=== PATIENT | male | born 1990 | race Caucasian/White ===

== ENCOUNTER 2018-10-06 21:43 | Emergency (ER) | payer OTHER, SELFPAY ==
[2018-10-06 21:47] VITALS: BP 152/90; PULSE 61; RESP 16; TEMP 37; O2SAT 99
--- NOTE | 2018-10-06 22:04 | W.ED.GENAD ---
Discharge Plan Disposition Patient Disposition: HOME Condition: Good Discharge Details Chief Complaint: GenMedical Clinical Impression: Arm numbness left, Vaso vagal episode ED Provider: Rah Maier Home Meds and New Rx's Prescriptions: No Action No Known Home Meds RF: 0 Discharge Instructions Instructions: Syncope (ED) Additional Instructions: Especially during the holiday season please make sure to drink 8-12 cups of water at a minimum per day. Please decrease your caffeine intake, avoid copious amounts of alcohol. if you notice any worsening of your symptoms, or any new symptoms such as vomiting, diarrhea, fever, chills, shortness of breath, chest pain, numbness, weakness, or fainting , please return immediately to the emergency department for reevaluation. Please follow up with your primary care provider as soon as possible for reassessment and reevaluation. As always, it was a pleasure participating in your medical care today. Medical Decision Making This is a very pleasant 28-year-old male who is presenting here for numbness and tingling and a subsequent vasovagal episode that occurred roughly 30-45 minutes prior to arrival. Patient was at a movie theater and had his left arm around the chair for the majority of the movie. He brought it back, when he noticed it was tingling and numb, however it did not resolve right away and he began to feel very anxious, pressured, and had signs and symptoms consistent with a mild vasovagal episode. He was lightheaded, felt the change in sound in his surroundings, and felt slightly off. This lasted just a few minutes, he drank a cup of water and his symptoms resolved. Patient's physical exam demonstrates no neurologic abnormalities, no evidence of stroke. He had no chest pain arm pain or headache. He has no family history of sudden cardiac . EKG shows no abnormalities including no evidence of WPW, epsilon wave, ST changes, T wave abnormalities, or other significant abnormalities. With reassuring vital signs, normal neurologic exam, no skeletal abnormalities, I feel his left arm pain was secondary to a mild nerve apraxia/impingement from being on a chair and elevated for quite some time, followed by mild anxiety and a potential benign vasovagal event which lasted less than 3 minutes and was resolved with a cold drink of water. Currently he shows no abnormalities, the remainder of his history is benign. He has no red flags in his family history or personal history. No significant abnormalities on his EKG. I feel his signs and symptoms are clinically inconsistent with a central neurologic abnormality or a cardiac abnormality. Being asymptomatic at this time I feel he can be safely discharged home with close follow-up with his PCP. I did discuss with the patient potential additional laboratory workup, however through shared decision making process and respecting patient's wishes patient has declined and I think this is extremely reasonable given his current clinical scenario being inconsistent with a severe acute or concerning pathology. we discussed red flags which return the patient understands. I have extensively reviewed the treatment plan and discharge instructions with the patient and their family. I have addressed all patient concerns at this time. The patient and family was made aware of what symptoms to monitor for that would warrant a return to the emergency department. Discussed the plan with the patient and family, they demonstrate verbal understanding and agreement with our assessment and plan at this time. EKG 21: 53 Rate 58, intervals normal, sinus bradycardia, no ST elevations or depressions, inverted T wave in V1 which is normal. No epsilon wave, no delta wave. HPI General Date/Time Provider Initiated Documentation: 10/06/18 22:04. HPI Narrative: This is a pleasant 28-year-old male with no significant past medical history except for a patent foramen ovale as a child, who presents today for evaluation of transient left arm tingling and mild lightheadedness. The patient states that this evening he was at a movie theater with his significant other, he had his left arm around the chair, when he noticed that it became slightly numb and tingly after it been there in that position for quite some time. When he noticed that the tingling did not go away over the next few seconds when he brought his arm down he began to suddenly get lightheaded, felt like things were closing in around him, and felt like he was in a haze. He felt pale and hot, but did get a cup of water and his symptoms completely resolved minutes later. He came to the ER [facility] for further evaluation at the recommendation of his significant other. Patient denies any chest pain, headache, vision changes, shortness of breath, arm pain, neck pain, tearing sensation of the chest, fever, chills. He denies any history of sudden in his family, early myocardial infarction in his family, history of aortic aneurysm or aortic dissection, or stroke. He denies any IV or illicit drug use. He denies any tobacco use. 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 Patient denies any recent surgeries. He has no other complaints at this time. Related Data Home Medications Medication Instructions Recorded Confirmed Unknown [No Known Home Meds] 10/06/18 10/06/18 Allergies Allergy/AdvReac Type Severity Reaction Status Date / Time No Known Allergies Allergy Unverified 10/06/18 22:07 General Stated Complaint: GenMedical ELIZABETH: 3 Review of Systems Review of Systems All systems reviewed & are unremarkable except as noted in HPI and below PFSH Social History Smoking/Tobacco Use Status: Never Exam Narrative Exam Narrative: 1.Const: Well-nourished, Well-developed, appearing stated age 2.Eyes: PERRL, no conjunctival injection, and symmetrical lids. 3.ENT: Atraumatic external nose and ears. Moist MM. Neck: Symmetric, trachea midline, No thyromegaly. 4.CVS: +S1/S2, No significant murmurs or gallops. Peripheral pulses 2+ and equal in all extremities. Brisk capillary refill in all extremities. Radial pulses equal and symmetric bilaterally. 5.RESP: Unlabored respiratory effort. Clear to auscultation bilaterally. No wheezes rales or rhonchi 6.GI: Soft, Nontender/Nondistended, No hepatosplenomegaly. No guarding or rebound. 7.MSK: Normocephalic/Atraumatic, Extremities w/o deformity or ttp No cyanosis or clubbing, Normal movement of all extremities. Normal strength and sensation to the upper extremities bilaterally, good movement of the fingers with fine movement and dexterity being intact. Normal sample display preparer strength. Bruise/East test was negative for any signs of significant thoracic outlet syndrome. 8.Skin: Warm, Dry. No rashes or lesions. 9.Neuro: medicinal plant picker II-XII grossly intact. Sensation grossly intact, no focal neurologic deficits. All 6 cardinal planes of vision are fully intact. No evidence of rotatory or vertical nystagmus. The patient demonstrated a normal [id number], good dexterity. There was no evidence of dysdiadochokinesia. Patient was able to ambulate without difficulty. There was no wide-based gait. Romberg, and [id number] are both normal on testing. Sensation was intact bilaterally as well as muscle strength bilaterally for all extremities. Patient was able to verbalize butter cup with no slurring, or miss pronunciation. 10.Psych: (AAO) x3. Appropriate mood and affect Course Vital Signs Temperature 37.0 C 10/06/18 21:47 Pulse 61 10/06/18 21:47 Respiratory Rate 16 10/06/18 21:47 Blood Pressure 152/90 H 10/06/18 21:47 Pulse Oximetry 99 10/06/18 21:47 Temperature 37.0 C 10/06/18 21:47 Temperature Source Temporal Artery Scan 10/06/18 21:47 Pulse 61 10/06/18 21:47 Respiratory Rate 16 10/06/18 21:47 Respiratory Effort Non-Labored 10/06/18 21:57 Blood Pressure 152/90 H 10/06/18 21:47 Blood Pressure Position Sitting 10/06/18 21:47 Pulse Oximetry 99 10/06/18 21:47 Pain Level 0 10/06/18 21:47
[2018-10-06 22:07] VITALS: RESP 16
[2018-10-06 22:08] VITALS: BP 142/55; PULSE 61; RESP 16; O2SAT 99
--- NOTE | 2018-10-06 22:15 | ED.GENADUL_ITS ---
Discharge Plan Disposition Patient Disposition: HOME Condition: Good Discharge Details Chief Complaint: GenMedical Clinical Impression: Arm numbness left, Vaso vagal episode ED Provider: Rah Maier Home Meds and New Rx's Prescriptions: No Action No Known Home Meds RF: 0 Discharge Instructions Instructions: Syncope (ED) Additional Instructions: Especially during the holiday season please make sure to drink 8-12 cups of water at a minimum per day. Please decrease your caffeine intake, avoid copious amounts of alcohol. if you notice any worsening of your symptoms, or any new symptoms such as vomiting, diarrhea, fever, chills, shortness of breath, chest pain, numbness, weakness, or fainting , please return immediately to the emergency department for reevaluation. Please follow up with your primary care provider as soon as possible for reassessment and reevaluation. As always, it was a pleasure participating in your medical care today. Medical Decision Making This is a very pleasant 28-year-old male who is presenting here for numbness and tingling and a subsequent vasovagal episode that occurred roughly 30-45 minutes prior to arrival. Patient was at a movie theater and had his left arm around the chair for the majority of the movie. He brought it back, when he noticed it was tingling and numb, however it did not resolve right away and he began to feel very anxious, pressured, and had signs and symptoms consistent with a mild vasovagal episode. He was lightheaded, felt the change in sound in his surroundings, and felt slightly off. This lasted just a few minutes, he drank a cup of water and his symptoms resolved. Patient's physical exam demonstrates no neurologic abnormalities, no evidence of stroke. He had no chest pain arm pain or headache. He has no family history of sudden cardiac . EKG shows no abnormalities including no evidence of WPW, epsilon wave, ST changes, T wave abnormalities, or other significant abnormalities. With reassuring vital signs, normal neurologic exam, no skeletal abnormalities, I feel his left arm pain was secondary to a mild nerve apraxia/impingement from being on a chair and elevated for quite some time, followed by mild anxiety and a potential benign vasovagal event which lasted less than 3 minutes and was resolved with a cold drink of water. Currently he shows no abnormalities, the remainder of his history is benign. He has no red flags in his family history or personal history. No significant abnormalities on his EKG. I feel his signs and symptoms are clinically inconsistent with a central neurologic abnormality or a cardiac abnormality. Being asymptomatic at this time I feel he can be safely discharged home with close follow-up with his PCP. I did discuss with the patient potential additional laboratory workup, however through shared decision making process and respecting patient's wishes patient has declined and I think this is extremely reasonable given his current clinical scenario being inconsistent with a severe acute or concerning pathology. we discussed red flags which return the patient understands. I have extensively reviewed the treatment plan and discharge instructions with the patient and their family. I have addressed all patient concerns at this time. The patient and family was made aware of what symptoms to monitor for that would warrant a return to the emergency department. Discussed the plan with the patient and family, they demonstrate verbal understanding and agreement with our assessment and plan at this time. EKG 21: 53 Rate 58, intervals normal, sinus bradycardia, no ST elevations or depressions, inverted T wave in V1 which is normal. No epsilon wave, no delta wave. HPI General Date/Time Provider Initiated Documentation: 10/06/18 22:04 . HPI Narrative: Jaylen lazo is a pleasant 28-year-old male with no significant past medical history except for a patent foramen ovale as a child, who presents today for evaluation of transient left arm tingling and mild lightheadedness. The patient states that this evening he was at a movie theater with his significant other, he had his left arm around the chair, when he noticed that it became slightly numb and tingly after it been there in that position for quite some time. When he noticed that the tingling did not go away over the next few seconds when he brought his arm down he began to suddenly get lightheaded, felt like things were closing in around him, and felt like he was in a haze. He felt pale and hot, but did get a cup of water and his symptoms completely resolved minutes later. He came to the ER [facility] for further evaluation at the recommendation of his significant other. Patient denies any chest pain, headache, vision changes, shortness of breath, arm pain, neck pain, tearing sensation of the chest, fever, chills. He denies any history of sudden in his family, early myocardial infarction in his family, history of aortic aneurysm or aortic dissection, or stroke. He denies any IV or illicit drug use. He denies any tobacco use. 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 Patient denies any recent surgeries. He has no other complaints at this time. Related Data Home Medications Medication Instructions Recorded Confirmed Unknown [No Known Home Meds] 10/06/18 10/06/18 Allergies Allergy/AdvReac Type Severity Reaction Status Date / Time No Known Allergies Allergy Unverified 10/06/18 22:07 General Stated Complaint: GenMedical ELIZABETH: 3 Review of Systems Review of Systems All systems reviewed & are unremarkable except as noted in HPI and below PFSH Social History Smoking/Tobacco Use Status: Never Exam Narrative Exam Narrative: 1.Const: Well-nourished, Well-developed, appearing stated age 2.Eyes: PERRL, no conjunctival injection, and symmetrical lids. 3.ENT: Atraumatic external nose and ears. Moist MM. Neck: Symmetric, trachea midline, No thyromegaly. 4.CVS: +S1/S2, No significant murmurs or gallops. Peripheral pulses 2+ and equal in all extremities. Brisk capillary refill in all extremities. Radial pulses equal and symmetric bilaterally. 5.RESP: Unlabored respiratory effort. Clear to auscultation bilaterally. No wheezes rales or rhonchi 6.GI: Soft, Nontender/Nondistended, No hepatosplenomegaly. No guarding or rebound. 7.MSK: Normocephalic/Atraumatic, Extremities w/o deformity or ttp No cyanosis or clubbing, Normal movement of all extremities. Normal strength and sensation to the upper extremities bilaterally, good movement of the fingers with fine movement and dexterity being intact. Normal softball winder strength. Bruise/East test was negative for any signs of significant thoracic outlet syndrome. 8.Skin: Warm, Dry. No rashes or lesions. 9.Neuro: sports marketing specialist II-XII grossly intact. Sensation grossly intact, no focal neurologic deficits. All 6 cardinal planes of vision are fully intact. No evidence of rotatory or vertical nystagmus. The patient demonstrated a normal [id number], good dexterity. There was no evidence of dysdiadochokinesia. Patient was able to ambulate without difficulty. There was no wide-based gait. Romberg, and [id number]-[id number] are both normal on testing. Sensation was intact bilaterally as well as muscle strength bilaterally for all extremities. Patient was able to verbalize butter cup with no slurring, or miss pronunciation. 10.Psych: (AAO) x3. Appropriate mood and affect Course Vital Signs Temperature 37.0 C 10/06/18 21:47 Pulse 61 10/06/18 21:47 Respiratory Rate 16 10/06/18 21:47 Blood Pressure 152/90 H 10/06/18 21:47 Pulse Oximetry 99 10/06/18 21:47 Temperature 37.0 C 10/06/18 21:47 Temperature Source Temporal Artery Scan 10/06/18 21:47 Pulse 61 10/06/18 21:47 Respiratory Rate 16 10/06/18 21:47 Respiratory Effort Non-Labored 10/06/18 21:57 Blood Pressure 152/90 H 10/06/18 21:47 Blood Pressure Position Sitting 10/06/18 21:47 Pulse Oximetry 99 10/06/18 21:47 Pain Level 0 10/06/18 21:47
== END 2018-10-06 22:24 | disposition home or self-care (01) ==
LOC: ER 22:23
PROVIDERS: Emergency Provider Student in an Organized Health Care Education/Training Program
DX: R20.0 Anesthesia of skin (principal); Z86.79 Personal history of other diseases of the circulatory system
CPT/HCPCS: 93005; 99283; 93010